=== PATIENT | female | born 2000 | race Hispanic/Latino ===

== ENCOUNTER 2020-11-20 20:43 | Day surgery (SDC) | payer OTHER ==
[2020-11-20 21:06] VITALS: BMI 22.3
[2020-11-20] MEDS ORDERED: hydrALAZINE 20 MG/ML VIAL SLOW IVP PRN (21:35)
[2020-11-20 21:51] LABS: Amnisure Test No Membranes Rupture (No Rupture)
== END 2020-11-20 23:57 | disposition home or self-care (01) ==
LOC: CSHLD/OP 20:43
PROVIDERS: ATTEND Obstetrics & Gynecology
DX: O47.03 False labor before 37 completed weeks of gestation, third trimester (principal); O99.891 Other specified diseases and conditions complicating pregnancy; N89.8 Other specified noninflammatory disorders of vagina; O09.33 Supervision of pregnancy with insufficient antenatal care, third trimester; Z88.1 Allergy status to other antibiotic agents; Z3A.35 35 weeks gestation of pregnancy
CPT/HCPCS: 84112; 87480; 87510; 87660; 99285

== ENCOUNTER 2020-11-30 10:54 | Day surgery (SDC) | payer OTHER ==
[2020-11-30] MEDS ORDERED: hydrALAZINE 20 MG/ML VIAL SLOW IVP PRN (12:10)
== END 2020-11-30 13:00 | disposition home or self-care (01) ==
LOC: CSHLD/OP 10:54
PROVIDERS: ATTEND Obstetrics & Gynecology
DX: O47.1 False labor at or after 37 completed weeks of gestation (principal); Z3A.37 37 weeks gestation of pregnancy; Z88.1 Allergy status to other antibiotic agents
CPT/HCPCS: 99283

== ENCOUNTER 2020-12-09 11:12 | Outpatient (CLI) | payer OTHER ==
[2020-12-09 20:56] LABS: SARS-CoV-2 PCR by NAA Not Detected (NotDetected)
== END 2020-12-09 11:13 | disposition home or self-care (01) ==
LOC: CSHLAB 11:12
PROVIDERS: ATTEND Obstetrics & Gynecology
DX: Z01.812 Encounter for preprocedural laboratory examination (principal); Z20.822 Contact with and (suspected) exposure to COVID-19
CPT/HCPCS: 87635; U0003; U0005

== ENCOUNTER 2020-12-14 05:30 | Inpatient (IN) | payer OTHER ==
[2020-12-14 06:30] VITALS: BMI 23.4
[2020-12-14] MEDS: Lactated Ringer's 1,000 ML IV SCH (06:30)
[2020-12-14] MEDS ORDERED: Acetaminophen 500 MG TAB PO PRN (06:39)
[2020-12-14] MEDS ORDERED: Ibuprofen 800 MG TAB PO PRN (06:39)
[2020-12-14] MEDS ORDERED: Ondansetron PF 4 MG/2 ML Vial IVP PRN ×2 (06:39→21:54)
[2020-12-14] MEDS ORDERED: Methylergonovine 0.2 MG/ML VIAL IM PRN ×2 (06:39→21:54)
[2020-12-14] MEDS ORDERED: Carboprost 250 MCG/ML AMP IM PRN (06:39)
[2020-12-14] MEDS ORDERED: Diphenoxylate HCl/Atropine Tablet PO PRN ×2 (06:39)
[2020-12-14] MEDS ORDERED: Misoprostol 200 MCG TAB PR PRN (06:39)
[2020-12-14] MEDS ORDERED: hydrALAZINE 20 MG/ML VIAL SLOW IVP PRN ×2 (06:39→21:54)
[2020-12-14] MEDS ORDERED: Lidocaine 1% (PF) 30 ML VIAL SC PRN (06:39)
[2020-12-14] MEDS ORDERED: Docusate 100 MG CAP PO PRN (06:39)
[2020-12-14] MEDS ORDERED: Promethazine HCl 25 MG/ML VIAL IM PRN ×2 (06:39→21:54)
[2020-12-14] MEDS ORDERED: HYDROcodone/Acetaminophen 5/325 mg Tablet PO PRN ×3 (06:39→21:54)
[2020-12-14] MEDS ORDERED: NS w/ Oxytocin 30 units 500 ML IVPB SCH (06:45)
[2020-12-14] MEDS ORDERED: NS w/ Oxytocin 30 units 500 ML IV SCH ×3 (06:45→21:54)
[2020-12-14 07:10] LABS: Hemoglobin 11.1 g/dL (12.0-15.5); Mean Corpuscular HGB CONC 32.8 g/dL (32.0-36.0); Mean Corpuscular Hemoglobin 27.9 pg (27.0-33.0); Mean Corpuscular Volume 84.9 fl (81.6-98.3); Mean Platelet Volume 11.2 fl (7.4-10.4); Platelet Count 243 10x3/uL (150-450); RBC Distribution Width 16.2 % (11.5-14.5); Red Blood Cell (RBC) Count 3.98 10x6/uL (3.90-5.03); White Blood Cell (WBC) Count 7.9 10x3/uL (3.5-10.5)
[2020-12-14 07:30] LABS: Hep B Surf Ag Non-Reactive S/CO (NonReactive)
[2020-12-14 07:47] LABS: Syphilis Antibody Nonreactive (Nonreactive); Syphilis Antibody Index 0.06 S/CO (<1.00 Non-Reactive)
[2020-12-14 12:21] LABS: HBSAg Index 0.24 S/CO (0-0.99)
[2020-12-14] MEDS: Butorphanol Tartrate 1 MG/ML VIAL SLOW IVP PRN ×2 (15:06→16:45)
[2020-12-14] MEDS ORDERED: Zolpidem Tartrate 5 MG TAB PO PRN (21:54)
[2020-12-14] MEDS ORDERED: Misoprostol 200 MCG TAB VAG PRN (21:54)
[2020-12-14] MEDS ORDERED: Milk Of Magnesia 30 ML UDCUP PO PRN (21:54)
[2020-12-14] MEDS ORDERED: Bisacodyl 10 MG SUPP PR PRN (21:54)
[2020-12-14] MEDS ORDERED: Lanolin Ointment 7 GM TUBE TOP PRN (21:54)
[2020-12-14] MEDS ORDERED: Preparation H Ointment 28 GM TUBE PR PRN (21:54)
[2020-12-14] MEDS ORDERED: diphenhydrAMINE 25 MG CAP PO PRN (21:54)
[2020-12-14] MEDS ORDERED: Docusate Calcium (SURFAK) 240 MG CAP PO SCH (22:00)
[2020-12-14] MEDS: Ibuprofen 800 MG TAB PO SCH (22:38)
[2020-12-14] MEDS: Docusate Calcium (SURFAK) 240 MG CAP PO SCH (22:39)
[2020-12-14] MEDS: Benzocaine-Menthol 82.5 ML CAN TOP PRN (22:40)
[2020-12-15] MEDS: Ibuprofen 800 MG TAB PO SCH ×3 (05:23→20:56)
[2020-12-15 07:55] LABS: Hemoglobin 8.8 g/dL (12.0-15.5); Mean Corpuscular HGB CONC 33.1 g/dL (32.0-36.0); Mean Corpuscular Hemoglobin 28.3 pg (27.0-33.0); Mean Corpuscular Volume 85.5 fl (81.6-98.3); Mean Platelet Volume 10.9 fl (7.4-10.4); Platelet Count 210 10x3/uL (150-450); RBC Distribution Width 16.6 % (11.5-14.5); Red Blood Cell (RBC) Count 3.11 10x6/uL (3.90-5.03); White Blood Cell (WBC) Count 12.3 10x3/uL (3.5-10.5)
[2020-12-15] MEDS ORDERED: Varicella virus, LIVE 0.5 ML VIAL SC ONE (09:00)
[2020-12-15] MEDS ORDERED: Measles/Mumps/Rubella 10 MCG/0.5 ML VIAL SC ONE (09:00)
[2020-12-15] MEDS ORDERED: Adacel (T-DAP) 0.5 ML SYRINGE IM ONE (09:00)
[2020-12-15] MEDS: Prenatal Vitamin 1 TAB PO SCH (11:10)
[2020-12-15] MEDS: Docusate Calcium (SURFAK) 240 MG CAP PO SCH ×2 (11:10→20:56)
[2020-12-15] MEDS: Ferrous Sulfate 325 MG TAB PO SCH (18:45)
[2020-12-15] MEDS: Lactated Ringer's 1,000 ML IV SCH (21:16)
[2020-12-16] MEDS: Ibuprofen 800 MG TAB PO SCH (05:01)
[2020-12-16] MEDS: Ferrous Sulfate 325 MG TAB PO SCH (07:16)
[2020-12-16 07:59] VITALS: BP 121/59; TEMP 98
[2020-12-16] MEDS: Benzocaine-Menthol 82.5 ML CAN TOP PRN (08:59)
[2020-12-16] MEDS: Docusate Calcium (SURFAK) 240 MG CAP PO SCH (08:59)
[2020-12-16] MEDS: Prenatal Vitamin 1 TAB PO SCH (08:59)
== END 2020-12-16 11:54 | disposition home or self-care (01) | DRG 768 ==
LOC: CSHLD 05:44 → CSHPP 21:36
PROVIDERS: ADMIT Obstetrics & Gynecology; ATTEND Obstetrics & Gynecology
PROC: 10E0XZZ Delivery of Products of Conception, External Approach (ICD-10-PCS; principal; 2020-12-14)
PROC: 0DQR0ZZ Repair Anal Sphincter, Open Approach (ICD-10-PCS; 2020-12-14)
DX: O70.20 Third degree perineal laceration during delivery, unspecified (principal); Z37.0 Single live birth; Z3A.39 39 weeks gestation of pregnancy; Z20.822 Contact with and (suspected) exposure to COVID-19
CPT/HCPCS: 36415; 85027; 86780; 86850; 86900; 86901; 87340; J0595; J0690; J2590

== ENCOUNTER 2021-06-21 10:59 | Emergency (ER) | payer OTHER ==
[2021-06-21] MEDS ORDERED: Ibuprofen 200 MG TAB ONE (13:21)
== END 2021-06-21 13:23 | disposition home or self-care (01) ==
LOC: CSHERS 10:59
DX: S90.01XA Contusion of right ankle, initial encounter (principal); W20.8XXA Other cause of strike by thrown, projected or falling object, initial encounter

== ENCOUNTER 2022-05-21 20:20 | Emergency (ER) | payer OTHER | END 2022-05-22 01:30 | disposition home or self-care (01) | LOC: CSHERS 20:20 | DX: M94.0 Chondrocostal junction syndrome [Tietze] (principal) | CPT/HCPCS: 71045; 93005 ==

== ENCOUNTER 2024-08-25 19:28 | Day surgery (SDC) | payer OTHER ==
[2024-08-25] MEDS ORDERED: hydrALAZINE 20 MG/ML VIAL SLOW IVP PRN (20:27)
[2024-08-25 20:28] VITALS: BMI 21.1
== END 2024-08-25 21:00 | disposition home or self-care (01) ==
LOC: CSHLD/OP 19:28
PROVIDERS: ATTEND Obstetrics & Gynecology
DX: O99.891 Other specified diseases and conditions complicating pregnancy (principal); R10.32 Left lower quadrant pain; O98.812 Other maternal infectious and parasitic diseases complicating pregnancy, second trimester; B37.31 Acute candidiasis of vulva and vagina; A59.01 Trichomonal vulvovaginitis; Z3A.22 22 weeks gestation of pregnancy; Z88.1 Allergy status to other antibiotic agents
CPT/HCPCS: 76815; 87480; 87510; 87660; 99284

== ENCOUNTER 2025-02-19 15:57 | Emergency (ER) | payer OTHER ==
[~2025-02-19 15:57] MED LIST: Iopamidol 370 76% 100 ML VIAL ONE
[2025-02-19] MEDS ORDERED: Ketorolac Tromethamine 30 MG (1 mL) VIAL ONE (16:37)
[2025-02-19 17:06] LABS: Hematocrit 34.6 % (34.9-44.5); Hemoglobin 11.5 g/dL (12.0-15.5); Mean Corpuscular Hemoglobin 26.7 pg (27.0-33.0); Mean Corpuscular Volume 80.5 fL (81.6-98.3); Platelet Count 303 10x3/uL (150-450); Red Blood Cell (RBC) Count 4.30 10x6/uL (3.90-5.03); White Blood Cell (WBC) Count 7.18 10x3/uL (3.5-10.5)
[2025-02-19 17:14] LABS: ALT (SGPT) 12 U/L (Less than 34); AST (SGOT) 17 U/L (11-34); Albumin 4.4 g/dL (3.1-4.5); Alkaline Phosphatase 100 U/L (40-110); Anion Gap 14 mmol/L (10-20); BUN (Urea Nitrogen) 13 mg/dL (7.0-18.7); Bilirubin, Total 0.4 mg/dL (0.3-1.2); Calc. Creatinine Clearance 0 mL/min (70-130); Calcium 9.3 mg/dL (7.8-10.44); Carbon Dioxide 19 mmol/L (22-29); Chloride 110 mmol/L (98-107); Globulin 3.5 g/dL (2.4-3.5); Glucose 84 mg/dL (70-105); Magnesium 1.8 mg/dL (1.6-2.6); Potassium 4.2 mmol/L (3.5-5.1); Sodium 139 mmol/L (136-145)
[2025-02-19 17:20] LABS: Troponin I Less than 0.010 ng/mL (< 0.028)
[2025-02-19 17:35] LABS: Thyroid Stimulating Hormone 0.8438 uIU/mL (0.35-4.94)
[2025-02-19 17:39] LABS: BHCG - Serum Negative (NEGATIVE); Pregs Control Bar Appear? YES (CONTROL BAR)
[2025-02-19 17:40] LABS: Pregs Control Background? CLEAR/WHITE (CLR/WHITE)
[2025-02-19 18:12] LABS: MDiff Complete? YES; Platelet Adequacy Comment Appears Adequate; RBC Morphology Within Normal Limits
[2025-02-19 22:46] LABS: T4 6.0 ug/dL (4.87-11.72)
== END 2025-02-19 18:20 | disposition home or self-care (01) ==
LOC: CSHERS 15:57
DX: R07.81 Pleurodynia (principal); M94.0 Chondrocostal junction syndrome [Tietze]
CPT/HCPCS: 71275; 80053; 83735; 83880; 84436; 84443; 84481; 84484; 84703; 85025; 93005; 96374; J1885

== ENCOUNTER 2025-03-01 15:58 | Emergency (ER) | payer OTHER | END 2025-03-01 17:40 | disposition home or self-care (01) | LOC: CSHERS 15:58 | DX: S93.432A Sprain of tibiofibular ligament of left ankle, initial encounter (principal); W17.2XXA Fall into hole, initial encounter | CPT/HCPCS: 29515 ==